=== PATIENT | female | born 1975 | race Two or more races ===

== ENCOUNTER 2023-10-09 00:18 | Inpatient (IN) | payer MEDICAID, OTHER ==
[2023-10-09] VITALS (8 sets, daily range): BP systolic 108–171; BP diastolic 57–88; PULSE 61–69; RESP 15–21; TEMP 98.1–98.9; O2SAT 96–99
[~2023-10-09] VITALS: Ht 154.9 cm; Wt 87.5 kg
[2023-10-09 01:23] LABS: Basophils # (auto) 0.1 10 ^3/uL (0-0.2); Eosinophils # (auto) 0.1 10 ^3/uL (0-0.8); Hemoglobin 12.7 g/dL (12.2-16.2); Lymphocytes # (auto) 2.1 10 ^3/uL (0.4-5.4); Monocytes # (auto) 0.8 10 ^3/uL (0-1.3); White Blood Cell 15.4 10^3/uL (4.4-10.8)
[2023-10-09 01:25] LABS: Basophils % (auto) 0.5 % (0.0-2.0); Eosinophils % (auto) 0.6 % (0.0-7.0); Hematocrit 38.5 % (36.0-46.0); Lymphocytes % (auto) 13.8 % (10.0-50.0); Mean Corpuscular Hemoglobin 27.4 pg (28.0-32.0); Monocytes % (auto) 5.3 % (0.0-12.0); Neutrophils # (auto) 12.3 10 ^3/uL (1.6-8.6); Neutrophils % (auto) 79.8 % (37.0-80.0); Red Blood Cells 4.64 10^6/uL (4.0-5.20); Red Cell Distribution Width 17.1 % (11.8-14.3)
[2023-10-09 01:39] LABS: Alanine Aminotransferase 34 U/L (7-40); Albumin 4.5 g/dL (3.2-4.8); Alkaline Phosphatase 88 U/L (46-116); Anion Gap 8 (5-15); Aspartate Aminotransferase 19 U/L (13-40); BUN/Creatinine Ratio 15.6 (10.0-20.0); Blood Urea Nitrogen 10 mg/dL (9-23); Calcium 9.4 mg/dL (8.7-10.4); Carbon Dioxide 25 mmol/L (20-30); Chloride 106 mmol/L (98-107); Glucose 127 mg/dL (74-106); Sodium 139 mmol/L (136-145)
[2023-10-09 01:40] LABS: Bilirubin, Total 0.4 mg/dL (0.2-1.0)
[2023-10-09] MEDS: FAMOTIDINE (10MG/ML) 2ML VL IV ONE (01:50)
[2023-10-09] MEDS: SODIUM CHLORIDE 0.9% 1,000 ML IV ONE (01:50)
[2023-10-09] MEDS: METOCLOPRAMIDE HCL 5MG/ml INJ 2ml VIAL IV ONE (01:51)
[2023-10-09] MEDS ORDERED: MET500T PO (09:10)
[2023-10-09] MEDS ORDERED: GABA-1250 PO (09:10)
[2023-10-09] MEDS ORDERED: CHOL20002 PO (09:10)
[2023-10-09] MEDS ORDERED: MELO15TA29 PO (09:10)
[2023-10-09] MEDS ORDERED: ALBU108A5 INH (09:10)
[2023-10-09] MEDS ORDERED: CLOT1CRE51 VG (09:10)
[2023-10-09] MEDS ORDERED: ONDANSETRON HCL 4 MG/2 ML VIAL IV PRN (09:15)
[2023-10-09] MEDS ORDERED: ACETAMINOPHEN 325 MG TAB PO PRN (09:15)
[2023-10-09 10:50] LABS: Basophils # (auto) 0.1 10 ^3/uL (0-0.2); Basophils % (auto) 0.8 % (0.0-2.0); Eosinophils # (auto) 0.1 10 ^3/uL (0-0.8); Hematocrit 36.3 % (36.0-46.0); Lymphocytes # (auto) 2.8 10 ^3/uL (0.4-5.4); Lymphocytes % (auto) 19.1 % (10.0-50.0); Mean Corpuscular Hemoglobin 27.5 pg (28.0-32.0); Mean Corpuscular Hgb Conc. 33.1 g/dL (32.0-36.0); Mean Corpuscular Volume 83.3 fL (80.0-100.0); Monocytes % (auto) 6.9 % (0.0-12.0); Neutrophils # (auto) 10.4 10 ^3/uL (1.6-8.6); Neutrophils % (auto) 72.2 % (37.0-80.0); Nucleated Red Blood Cells % 0.1 %; Red Blood Cells 4.35 10^6/uL (4.0-5.20); Red Cell Distribution Width 17.1 % (11.8-14.3); White Blood Cell 14.4 10^3/uL (4.4-10.8)
[2023-10-09 11:21] LABS: Anion Gap 6 (5-15); Carbon Dioxide 25 mmol/L (20-30); Chloride 107 mmol/L (98-107); Potassium 4.3 mmol/L (3.5-5.1); Sodium 138 mmol/L (136-145)
[2023-10-09 11:22] LABS: Calcium 9.2 mg/dL (8.7-10.4)
[2023-10-09 11:27] LABS: BUN/Creatinine Ratio 14.3 (10.0-20.0); Blood Urea Nitrogen 8 mg/dL (9-23); Glucose 92 mg/dL (74-106); Triglycerides 226 mg/dL (< 150)
[2023-10-09 11:28] LABS: LDL Cholesterol 118 mg/dL (< 100)
[2023-10-09 11:29] LABS: Cholesterol 180 mg/dL (< 200); HDL Cholesterol 28 mg/dL (40-59)
[2023-10-09] MEDS: MELOXICAM 15 MG PO SCH (12:05)
[2023-10-09] MEDS: GABAPENTIN 300 MG CAP PO SCH (12:06)
[2023-10-09] MEDS: SODIUM CHLORIDE 0.9% 1,000 ML IV SCH (12:07)
[2023-10-09] MEDS: ENOXAPARIN SOD 40 MG/0.4 ML SYRINGE SC SCH (12:07)
[2023-10-09] MEDS: CHOLECALCIFEROL (VITD3) 1,000UNIT=25mCg TAB PO SCH (12:07)
[2023-10-09] MEDS: MECLIZINE HCL 25 MG TAB PO PRN (22:01)
[2023-10-09 22:08] LABS: Urine Bacteria None Seen /hpf (None Seen)
[2023-10-09 22:19] LABS: Urine Blood 2+ /uL (Negative); Urine Clarity Clear (Clear); Urine Color Yellow (Yellow); Urine Mucus FEW (None Seen); Urine Protein, UAD TRACE (Negative); Urine Specific Gravity 1.028 (1.001-1.035); Urine Urobilinogen Normal (Negative); Urine WBC 2 /hpf (0 - 5)
[2023-10-09 22:33] LABS: Amphetamine Screen, Urine Neg (NEGATIVE); Barbiturate Scree,Urine Neg (NEGATIVE); Benzodiazephine Screen, Urine Neg (NEGATIVE); Cannabinoid Screen, Urine Neg (NEGATIVE); Cocaine Screen, Urine Neg (NEGATIVE); Opiate Scree,Urine Neg (NEGATIVE); Phencyclidine Screen, Urine Neg (NEGATIVE)
[2023-10-10] VITALS (8 sets, daily range): BP systolic 0–152; BP diastolic 49–82; PULSE 55–98; RESP 16–20; TEMP 97.4–98.8; O2SAT 95–100
[2023-10-10] MEDS: PANTOPRAZOLE 40 MG TAB PO SCH (05:30)
[2023-10-10 06:12] LABS: Basophils # (auto) 0.1 10 ^3/uL (0-0.2); Basophils % (auto) 0.8 % (0.0-2.0); Eosinophils # (auto) 0.2 10 ^3/uL (0-0.8); Hematocrit 33.8 % (36.0-46.0); Lymphocytes # (auto) 3.1 10 ^3/uL (0.4-5.4); Lymphocytes % (auto) 30.7 % (10.0-50.0); Mean Corpuscular Hemoglobin 27.1 pg (28.0-32.0); Mean Corpuscular Hgb Conc. 32.7 g/dL (32.0-36.0); Mean Corpuscular Volume 82.9 fL (80.0-100.0); Monocytes # (auto) 0.7 10 ^3/uL (0-1.3); Monocytes % (auto) 7.1 % (0.0-12.0); Neutrophils % (auto) 59.4 % (37.0-80.0); Red Blood Cells 4.07 10^6/uL (4.0-5.20); Red Cell Distribution Width 17.6 % (11.8-14.3); White Blood Cell 10.1 10^3/uL (4.4-10.8)
[2023-10-10 06:27] LABS: Alanine Aminotransferase 24 U/L (7-40); Albumin 3.7 g/dL (3.2-4.8); Alkaline Phosphatase 70 U/L (46-116); Anion Gap 7 (5-15); Aspartate Aminotransferase 14 U/L (13-40); BUN/Creatinine Ratio 15.5 (10.0-20.0); Bilirubin, Total 0.3 mg/dL (0.2-1.0); Blood Urea Nitrogen 9 mg/dL (9-23); Calcium 8.8 mg/dL (8.7-10.4); Carbon Dioxide 24 mmol/L (20-30); Chloride 107 mmol/L (98-107); Glucose 89 mg/dL (74-106); Potassium 3.8 mmol/L (3.5-5.1); Sodium 138 mmol/L (136-145); Total Protein 6.1 g/dL (5.7-8.2)
[2023-10-10] MEDS: cefTRIAXone 1GM/50ML D5W 50 ML IV ONE (15:47)
[2023-10-10] MEDS: LEVOTHYROXINE SODIUM 25 MCG TAB PO ONE (15:47)
[2023-10-10] MEDS: SODIUM CHLORIDE 0.9% 1,000 ML IV SCH (15:48)
[2023-10-10] MEDS: ATORVASTATIN 20 MG TAB PO SCH (21:27)
[2023-10-10] MEDS ORDERED: LORazepam 2MG/ML-1ML VIAL IV PRN (21:30)
[2023-10-11] VITALS (7 sets, daily range): BP systolic 0–172; BP diastolic 58–84; PULSE 54–65; RESP 18–20; TEMP 97.5–98.7; O2SAT 96–99
[2023-10-11] MEDS: cefTRIAXone 1GM/50ML D5W 50 ML IV SCH (11:43)
[2023-10-11] MEDS: MECLIZINE HCL 25 MG TAB PO SCH (17:26)
[2023-10-11] MEDS: cloNIDine HCL 0.1 MG TAB PO PRN (22:20)
[2023-10-12 01:00] VITALS: BP 146/74; PULSE 64; RESP 18; TEMP 97.8; O2SAT 98
[2023-10-12 05:00] VITALS: BP 101/56; PULSE 56; RESP 18; TEMP 98; O2SAT 98
[2023-10-12 08:57] VITALS: BP 100/57; PULSE 53; RESP 16; TEMP 96.9; O2SAT 100
[2023-10-12] MEDS ORDERED: ATOR-507 PO (11:18)
[2023-10-12] MEDS ORDERED: LEVO-849 PO (11:18)
[2023-10-12] MEDS ORDERED: CIPR-173 PO (11:18)
[2023-10-12] MEDS ORDERED: MECL25CH85 PO (11:18)
[2023-10-12 12:38] VITALS: BP 118/78; TEMP 36.1
[2023-10-12 13:00] VITALS: BP 109/43; PULSE 60; RESP 17; TEMP 98.8; O2SAT 98
[2023-10-12 16:39] VITALS: BP 133/73; PULSE 65; RESP 15; TEMP 98.3; O2SAT 100
== END 2023-10-12 16:07 | disposition home or self-care (01) | DRG 720 ==
LOC: ER 00:18 → OVERFLOW 09:10 → WEST WING 14:41
PROVIDERS: ADMIT Internal Medicine Pulmonary Disease; ATTEND Internal Medicine Pulmonary Disease
DX: A41.9 Sepsis, unspecified organism (principal); G45.9 Transient cerebral ischemic attack, unspecified; N30.01 Acute cystitis with hematuria; E03.9 Hypothyroidism, unspecified; E86.0 Dehydration; E66.01 Morbid (severe) obesity due to excess calories; E78.00 Pure hypercholesterolemia, unspecified; Z79.899 Other long term (current) drug therapy; Z68.36 Body mass index [BMI] 36.0-36.9, adult; H81.09 Meniere's disease, unspecified ear
CPT/HCPCS: 36415; 70450; 70551; 71046; 80048; 80053; 80061; 80307; 81001; 81025; 82607; 84443; 84484; 84702; 85025; 87086; 93005; 93306; 93886; G0378; J3490